=== PATIENT | female | born 1985 | race American Indian/Alaskan Native ===

== ENCOUNTER 2018-06-24 21:04 | Emergency (ER) | payer MEDICAID, OTHER ==
[2018-06-24 21:27] VITALS: BP 126/57
[2018-06-25] MEDS ORDERED: NORCO 5/325 PO ONE (00:14)
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
== END 2018-06-25 02:37 | disposition home or self-care (01) ==
LOC: ED 21:04
DX: M54.40 Lumbago with sciatica, unspecified side (principal); V89.2XXA Person injured in unspecified motor-vehicle accident, traffic, initial encounter; Y93.89 Activity, other specified; Y99.8 Other external cause status; Y92.410 Unspecified street and highway as the place of occurrence of the external cause
CPT/HCPCS: 72100